=== PATIENT | male | born 1965 | race Asian ===

== ENCOUNTER 2020-12-30 11:01 | Emergency (ER) | payer BC ==
[~2020-12-30] VITALS: Ht 160 cm; Wt 59.1 kg
[2020-12-30 11:02] VITALS: BP 129/61
[2020-12-30] MEDS ORDERED: LISI-662 PO (11:07)
[2020-12-30] MEDS ORDERED: ATOR10TA69 PO (11:07)
[2020-12-30] MEDS ORDERED: AMLO5TAB66 PO (11:08)
[2020-12-30] MEDS ORDERED: AMLO-258 PO (11:10)
[2020-12-30] MEDS ORDERED: LISI-658 PO (11:10)
[2020-12-30] MEDS ORDERED: ATOR20TA86 PO (11:10)
[2020-12-30 11:39] LABS: COVID AG,FIA SOURCE NASOPHARYNGEAL
== END 2020-12-30 11:30 | disposition home or self-care (01) ==
LOC: EMS 11:01
DX: J02.9 Acute pharyngitis, unspecified (principal); I10 Essential (primary) hypertension; Z20.822 Contact with and (suspected) exposure to COVID-19
CPT/HCPCS: 87426; 99283; U0003